=== PATIENT | female | born 1930 | race Caucasian/White ===

== ENCOUNTER → 2016-05-30 | Outpatient (CLI) | payer MEDICARE, OTHER ==
[~2016-05-30] MED LIST: BENTYL-DPS10 MG PO; CARAFATE D1 GM/10 ML PO; CELEXA DPS20 MG PO; DULCOLAX-DPS5 MG PO; DUONEB DPS3 ML IH; FEOSOL325 MG PO; LEVAQUIN DPS750 MG PO; LOVENOX DP40 MG/0.4 SQ; MEGACE DPS800 MG/20 PO; PREVAGEN PO; SEROQUEL25 MG PO; SYNTHROID DPS0.1 MG PO; TEARS NATURAL D15 ML OU; TIMOPTIC 0.5% DP5 ML OS; TOPROL XL DPS25 MG PO; TYLENOL DPS325 MG PO; ULTRAM DPS50 MG PO
== END | disposition home or self-care (01) ==
LOC: PTH.S 12:15 → RAD.S 12:16
DX: C34.32 Malignant neoplasm of lower lobe, left bronchus or lung (principal); I10 Essential (primary) hypertension; R91.1 Solitary pulmonary nodule; J90 Pleural effusion, not elsewhere classified; J98.4 Other disorders of lung; G31.9 Degenerative disease of nervous system, unspecified

== ENCOUNTER 2016-06-21 15:34 | Inpatient (IN) | payer MEDICARE, OTHER ==
[~2016-06-21] VITALS: Ht 170.2 cm; Wt 60.6 kg
--- NOTE | 2016-06-22 23:33 | HP ---
ADMIT: 06/21/2016 RM/LOC: [facility] MR#: [id number] [id number] [place], [place] [address] TAMIKO RICK M [address] [place] [address] History and Physical SEX: F AGE: 86 : 1930 DATE OF SERVICE: CHIEF COMPLAINT: Weakness. HISTORY OF PRESENT ILLNESS: The patient is a very pleasant 86-year-old female, presents to the emergency room with increasing weakness, decreased oral intake, cough, shortness of breath, worsening, severe at home. She has a history of non-small cell lung cancer. Finished chemotherapy on [birth year], her birthday more than two months ago. Has had increasing weakness since that time. Normally resides at home with her 88-year-old . Things just got worse dramatically over the last couple of days. Two days ago, she got IV fluids in the office. Has felt increasingly weak since that time. No fevers. Cough. No production. No chest pain. No other pain really. PAST MEDICAL HISTORY: 1. Hyperlipidemia. 2. Hypertension. 3. Hypothyroidism. 4. History of thyroid cancer. 5. Non-small cell lung cancer. Follow up with Dr. Garcia. MEDICATIONS: She is on DuoNebs, Dulcolax, Celexa, guaifenesin, codeine, Levothroid, Ativan, Protonix, and Carafate. ALLERGIES: ASPIRIN AND MORPHINE. SOCIAL HISTORY: Nonsmoker. Lives at home with her . Formerly worked in a [employer]. FAMILY HISTORY: Reviewed and noncontributory. PHYSICAL EXAMINATION: VITAL SIGNS: Blood pressure 136/71, pulse 79, respiratory rate 18, and temperature 95.8. GENERAL: She is alert. Some confusion. Difficulty following conversation at times. HEENT: Normocephalic and atraumatic. Mild alopecia. Pupils are equal, round, and reactive to light and accommodation. Extraocular muscles are intact. Dry mucous membranes. NECK: No lymphadenopathy. Soft, supple. Trachea midline. LUNGS: She had diminished breath sounds on the left. Some rales on the right. Symmetric thoracic excursion. HEART: Regular rate and rhythm. No murmurs, rubs, or gallops. ABDOMEN: Soft, nontender, and nondistended. Bowel sounds present. EXTREMITIES: No cyanosis, clubbing, or edema. MUSCULOSKELETAL: 5/5 strength in all 4 extremities. NEUROLOGICAL: No focal deficits noted. Cranial nerves II through XII grossly intact. PSYCHIATRIC: She is pleasant. Converses well, but some confusion. Interacts ADMIT: 06/21/2016 RM/LOC: [facility] MR#: [id number] [address] [address] RICK MORRISON [address] [place] [address] History and Physical SEX: F AGE: 86 : 1930 well with son at bedside. SKIN: No rashes noted. LABORATORY AND X-RAY DATA: Creatinine is 0.7, albumin 2.2, AST 30, and Mag 2.1. Troponin is negative. Hemoglobin 10.7 and platelets 389. Lactic acid 1.4, potassium 3.6, and procalcitonin is negative. UA is negative. CT scan of her head is negative for anything acute. CT scan of her chest showed significant increase in the size of the left-sided pleural effusion, small right-sided effusion, known left lung mass is again seen with overall dimension of the mass, difficult actually measured due to the mass being identified with a large amount of postobstructive atelectasis. This is a CT compared to 05/30/2016 CT. ASSESSMENT AND PLAN: 1. Non-small cell lung cancer, advanced. 2. Failure to thrive. 3. Large increasing pleural effusion with shortness of breath. 4. Postobstructive pneumonia, possible. 5. Hypothyroidism. PLAN: At this point in time, we will admit her to the hospital. We will work on getting thoracentesis performed given her severe cough. She seems to be worsening consistent with possible postobstructive pneumonia. Start her on some oral antibiotics. If she improves with that, we will try to do a thoracentesis possibly in the morning. Social Work to see her. I think she is going to require higher level of care. Continue with cough suppressant. Otherwise, continue her home medications. The patient is agreeable to plan. Jordy Quach MD/ kiley JOB #: [id number] CC: Michael Baker, Attending Physician Michael Baker, Family Physician
--- NOTE | 2016-06-26 08:06 | CO ---
ADMIT: 06/21/2016 RM/LOC: 421 [facility] MR#: [id number] [address] [facility] [address] [place], [place] [address] TAMIKO, RICK M [facility] [facility] [place] [address] Consultation SEX: F AGE: 86 : 1930 DATE OF CONSULTATION: 06/22/2016 ATTENDING PHYSICIAN: Michael Baker CONSULTING PHYSICIAN: Bethel Yanez MD REASON FOR CONSULTATION: Lung cancer, failure to thrive. HISTORY OF PRESENT ILLNESS: This is a pleasant 86-year-old female with a history of stage IIIA nonoperable non-small cell lung cancer. She has completed her first line of therapy with concurrent chemoradiation therapy on clinical trial. Her last dose of chemotherapy was delivered on 04/12/2016, and she had been under surveillance prior to this hospitalization. She was living at home with her , but over the last 2 to 3 days, has had more of a decline with generalized weakness, poor oral intake, increased cough, and increased shortness of breath. It got to the point that he was unable to care for her and decided to bring her to the emergency department. Workup here did show that there were significantly increased pleural effusions, and thus she was admitted. She had come in two days prior to the office to receive IV fluids, but this was insufficient to improve her overall weakness. Dr. Quach was requesting my presence to discuss her treatment options and overall prognosis with the patient. PAST MEDICAL HISTORY: Significant for hyperlipidemia, hypertension, hypothyroidism, history of thyroid cancer, and non-small cell lung cancer. Normally being treated by Dr. Jacobs. MEDICATIONS: 1. DuoNebs. 2. Dulcolax. 3. Celexa. 4. Guaifenesin. 5. Codeine. 6. Levothyroxine. 7. Ativan. 8. Protonix. 9. Carafate. ALLERGIES: ASPIRIN AND MORPHINE. SOCIAL HISTORY: Nonsmoker. Previously worked with uranium, near a radium mine. Lives at home with her elderly . FAMILY HISTORY: Reviewed and noncontributory. REVIEW OF SYSTEMS: A complete review of systems was conducted and found to be negative except for what was mentioned above in HPI. PHYSICAL EXAMINATION: VITAL SIGNS: Temp 96.4, pulse 86, respiratory rate 16, ADMIT: 06/21/2016 RM/LOC: 421 [facility] MR#: [id number] [address] [facility] [address] [place], [place] [address] RICK MORRISON [address] [place] [address] Consultation SEX: F AGE: 86 : 1930 blood pressure 132/84, and 95% on room air. GENERAL: This is an alert and orientated x3 adult female, resting comfortably in bed. She is slightly fidgety with the blankets on top of her. Somewhat tangential, but is able to provide a decent history. HEENT: Pupils are equal, round, and reactive to light. Mouth is free from oral lesions with moist mucous membranes. NECK: Shows trachea midline. No lymphadenopathy. CHEST: Decreased breath sounds in bilateral lung bases. No expiratory wheezes. Normal respiratory effort at rest. HEART: Regular rate and rhythm with no murmurs, rubs, or gallops. ABDOMEN: Soft, nontender to palpation. Nondistended. Bowel sounds are positive. EXTREMITIES: No clubbing, cyanosis, or edema. MUSCULOSKELETAL: No inflamed or swollen joints. Range of motion is full in all extremities. NEUROLOGIC: Cranial nerves II through XII are grossly intact. PSYCH: Mood is euthymic. Affect is full and mood congruent. SKIN: No concerning rashes, wounds, or pigmented lesions. LABORATORY AND RADIOLOGY: On 06/21/2016, CT of head without contrast, no acute intracranial abnormalities. On 06/21/2016, CTA chest impression. 1. No pulmonary embolism identified. 2. Significant increase in size of left-sided pleural effusion with moderate- to-large amount and small right-sided pleural effusion increased in size. Difficult to measure known left lung mass due to atelectasis. Stable appearing 4.5 mm right upper lobe pulmonary nodule. Procalcitonin less than 0.05. WBC 8.5, hemoglobin 10.7, and platelets 389. Lactic acid 1.4. Sodium 142, potassium 3.6, bicarb 27, BUN 19, creatinine 0.7, glucose 101, calcium 7.6, albumin 2.2, and TSH 0.205. IMPRESSION AND RECOMMENDATIONS: An 86-year-old female with stage IIIA nonoperable non-small cell lung cancer, admitted for weakness and increasing pleural effusions. Non-small cell lung cancer. The patient has received chemo and radiation therapy with her last dose on 04/12/2016. It is unlikely that her chemotherapy is leading directly to this hospitalization. However, the increasing size in pleural effusions are suggestive of cancer recurrence and the fluid should be evaluated after thoracentesis. If there are cancer cells seen via cytology assessment of this fluid around her lungs, this would represent progression of disease and potentially make her eligible for immunotherapy in the second line. The best option would be Opdivo given IV every two weeks and generally is thought to be much better tolerated than chemotherapy. The patient has ADMIT: 06/21/2016 RM/LOC: 421 [facility] MR#: [id number] [address] [place] [id number] RICK MORRISON [address] [place] [address] Consultation SEX: F AGE: 86 : 1930 other issues such as poor oral intake, malnutrition, and weakness, which may make further treatment difficult, but not impossible. Further discussion with Dr. Jacobs around 06/28/2016, clinic visit will be planned with the results of the anticipated thoracentesis playing a prominent role. I spent some time discussing the further treatment options and assessing of the patient was of the mindset that she wanted further therapy. It sound that this was the case. We did not explicitly talk about prognosis at this visit. Thank you for this consultation. Please call with any further questions. TOTAL TIME SPENT: 60 minutes. Bethel Yanez MD/ kiley JOB #: [id number] CC: Michael Baker, Attending Physician Michael Baker, Family Physician
[2016-06-27] MEDS ORDERED: CELEXA DPS20 MG PO (13:34)
[2016-06-27] MEDS ORDERED: BENTYL-DPS10 MG PO (13:34)
[2016-06-27] MEDS ORDERED: CARAFATE D1 GM/10 ML PO (13:34)
[2016-06-27] MEDS ORDERED: FEOSOL325 MG PO (13:35)
[2016-06-27] MEDS ORDERED: LEVAQUIN DPS750 MG PO (13:35)
[2016-06-27] MEDS ORDERED: DULCOLAX-DPS5 MG PO (13:35)
[2016-06-27] MEDS ORDERED: MEGACE DPS800 MG/20 PO (13:36)
[2016-06-27] MEDS ORDERED: SEROQUEL25 MG PO ×2 (13:37→13:39)
[2016-06-27] MEDS ORDERED: SYNTHROID DPS0.1 MG PO (13:37)
[2016-06-27] MEDS ORDERED: TOPROL XL DPS25 MG PO (13:37)
[2016-06-27] MEDS ORDERED: PREVAGEN PO (13:37)
[2016-06-27] MEDS ORDERED: DUONEB DPS3 ML IH (13:38)
[2016-06-27] MEDS ORDERED: TEARS NATURAL D15 ML OU (13:38)
[2016-06-27] MEDS ORDERED: TIMOPTIC 0.5% DP5 ML OS (13:38)
[2016-06-27] MEDS ORDERED: ULTRAM DPS50 MG PO (13:39)
[2016-06-27] MEDS ORDERED: TYLENOL DPS325 MG PO (13:39)
[2016-06-27] MEDS ORDERED: LOVENOX DP40 MG/0.4 SQ (13:40)
--- NOTE | 2016-06-27 16:13 | ER ---
ADMIT: 06/21/2016 RM/LOC: 421 [facility] MR#: [id number] [address] [facility] [address] [place] [phone] RICK MORRISON [address] [facility] [place] [address] Emergency Room Report SEX: F AGE: 86 : 1930 DATE: 06/21/2016 ADDENDUM: An 86-year-old white female with known lung cancer, coming in with persistent cough, weakness. CT of the head and chest showed nothing abnormal on the CT head. Chest, however, had increasing pleural effusion. Her mass has gotten worse. CBC and chemistry are negative at this time. She had been on chemo, but had been off. She is having increasing pleural effusion, which I am sure is related to her cancer. She is becoming more weak and I talked to Dr. Quach and will admit for failure to thrive, eating less, drinking less DICTATION ENDS HERE Chemo Taylor MD/ kiley JOB #: [id number] CC: Michael Baker MD, Attending Physician Michael Baker MD, Family Physician
--- NOTE | 2016-07-01 06:57 | DS ---
ADMIT: 06/21/2016 RM/LOC: 421 [facility] MR#: [id number] [address] [facility] [place], [place] [address] TAMIKO, RICK M [address] [place] [address] General Discharge Summary SEX: F AGE: 86 : 1930 ADMISSION DATE: 06/21/2016 DISCHARGE DATE: 06/26/2016 FINAL DIAGNOSES: 1. Pneumonia. 2. Pleural effusion. 3. Non-small cell lung cancer, metastatic. 4. Mental status changes. 5. Hypokalemia. 6. Status post thoracentesis. REASON FOR ADMISSION: See dictated H and P, but briefly, this is an 86-year- old female, who had been declining recently from lung cancer, presented with increased confusion, hallucinations, and weakness. She had cough for sometime and some shortness of breath and this has been getting worse as well as she will be getting very weak. At home, they had been taking as needed Ambien, which they were supposed to stop. Oncology consult was obtained. She was put on antibiotics and Interventional Radiology was set up for a thoracentesis and 950 mL were taken out of the left lung. She ultimately was doing okay and little bit stronger. By the , was doing well enough, but with her being rather elderly and weak as well. She needed more time to get stronger as he is her primary caregiver, so she needed to get stronger to allow, so he can actually take care of her because she needs a little bit too much help, so she was discharged there. She will be on: 1. Lovenox 40 mg subq daily there. 2. She will be on Bentyl 10 mg daily. 3. Carafate q.a.c. and at bedtime. 4. Celexa 10 mg daily. 5. Dulcolax 5 mg at bedtime. 6. PO iron 325 mg b.i.d. 7. Levaquin 250 mg daily for 10 days. ADMIT: 06/21/2016 RM/LOC: 421 [facility] MR#: [id number] [address] [facility] [address] [place], [place] [address] RICK MORRISON [address] [place] [address] General Discharge Summary SEX: F AGE: 86 : 1930 8. Megace 400 mg daily. 9. Prevagen, the patient's old med one daily. 10.Seroquel 25 mg at bedtime. 11.Synthroid 0.1 mg daily. 12.Toprol-XL 25 mg daily. 13.DuoNebs t.i.d. 14.Timoptic eyedrops one drop left eye b.i.d. 15.Natural tears both eyes q.i.d. 16.Seroquel 12.5 mg p.r.n. 17.Tylenol 650 every 4 hours p.r.n. 18.Tramadol 50 mg q.6 p.r.n. Follow with me in 1 to 2 weeks. Continue PT and OT and regular diet. Michael Baker MD/ modl JOB #: [id number] CC: Michael Baker MD, Attending Physician Michael Baker MD, Family Physician
== END 2016-06-26 14:00 | DRG 194 ==
LOC: ER 15:34 → 4PCU 19:30
PROVIDERS: ADMIT Internal Medicine
PROC: 0W9B3ZX Drainage of Left Pleural Cavity, Percutaneous Approach, Diagnostic (ICD-10-PCS; principal; 2016-06-24)
DX: J18.9 Pneumonia, unspecified organism (principal); J91.8 Pleural effusion in other conditions classified elsewhere; E44.0 Moderate protein-calorie malnutrition; C34.90 Malignant neoplasm of unspecified part of unspecified bronchus or lung; E87.6 Hypokalemia; E78.5 Hyperlipidemia, unspecified; I10 Essential (primary) hypertension; E89.0 Postprocedural hypothyroidism; Z85.850 Personal history of malignant neoplasm of thyroid

== ENCOUNTER → 2016-07-08 | Outpatient (CLI) | payer MEDICARE, OTHER | END | disposition home or self-care (01) | LOC: RAD.S 12:32 | DX: C34.32 Malignant neoplasm of lower lobe, left bronchus or lung (principal); J43.9 Emphysema, unspecified; J90 Pleural effusion, not elsewhere classified; R91.8 Other nonspecific abnormal finding of lung field; I10 Essential (primary) hypertension ==

== ENCOUNTER → 2016-08-08 | Outpatient (CLI) | payer MEDICARE, OTHER | END | disposition home or self-care (01) | LOC: EDSTATUS 09:00 → PTH.S 09:00 → RAD.S 09:30 → PTH.S 08-15 09:00 | PROC: 0W993ZZ Drainage of Right Pleural Cavity, Percutaneous Approach (ICD-10-PCS; principal; 2016-08-08) | DX: J90 Pleural effusion, not elsewhere classified (principal); R91.8 Other nonspecific abnormal finding of lung field; I10 Essential (primary) hypertension; Z85.118 Personal history of other malignant neoplasm of bronchus and lung; Z98.890 Other specified postprocedural states ==

== ENCOUNTER → 2016-08-09 | Outpatient (CLI) | payer MEDICARE, OTHER | END | disposition home or self-care (01) | LOC: RAD.S 08:45 | DX: C34.32 Malignant neoplasm of lower lobe, left bronchus or lung (principal); I10 Essential (primary) hypertension; R91.1 Solitary pulmonary nodule; K57.30 Diverticulosis of large intestine without perforation or abscess without bleeding; J98.11 Atelectasis; J90 Pleural effusion, not elsewhere classified ==

== ENCOUNTER → 2016-11-12 | Outpatient (CLI) | payer MEDICARE, OTHER | END | disposition home or self-care (01) | DX: C34.32 Malignant neoplasm of lower lobe, left bronchus or lung (principal); J90 Pleural effusion, not elsewhere classified; I10 Essential (primary) hypertension; J98.19 Other pulmonary collapse ==